=== PATIENT | male | born 1990 | race Caucasian/White ===

== ENCOUNTER 2016-11-22 20:37 | Emergency (ER) | payer OTHER ==
[~2016-11-22] VITALS: Ht 180.3 cm; Wt 65.8 kg
[2016-11-22] MEDS ORDERED: NO HOME MEDICATION XX (20:52)
[2016-11-22] MEDS ORDERED: KEFLEX500 M4 PO (21:12)
== END 2016-11-22 21:23 ==
LOC: EDMED 20:37
DX: T63.481A Toxic effect of venom of other arthropod, accidental (unintentional), initial encounter (principal); L29.9 Pruritus, unspecified